=== PATIENT | male | born 1950 | race Caucasian/White ===

== ENCOUNTER 2016-06-09 05:33 | Emergency (ER) | payer SELFPAY ==
[~2016-06-09] VITALS: Ht 177.8 cm; Wt 88.5 kg
[2016-06-09 05:33] VITALS: BP 164/100; PULSE 98; RESP 18; TEMP 98.2; O2SAT 98
[~2016-06-09 05:33] MED LIST: ENALAPRIL; METFORMIN; SERT100T PO
--- NOTE | 2016-06-09 05:33 | NUR ---
Patient to ER bed 7 to gown for evaluation. Side rails up.
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
--- NOTE | 2016-06-09 05:53 | NUR ---
ER at bedside examining patient.
[2016-06-09] MEDS ORDERED: KETOROLAC TROMETHAMINE 60 MG/2 ML VIAL IM ONE (06:00)
--- NOTE | 2016-06-09 06:07 | NUR ---
Medication given as per orders , tolerated well.
[2016-06-09] MEDS ORDERED: MORPHINE 4 MG/ML INJ. SYRINGE IM ONE (06:45)
[2016-06-09 07:18] VITALS: BP 155/89; PULSE 86; RESP 20; TEMP 98.1; O2SAT 100
--- NOTE | 2016-06-09 07:18 | NUR ---
Patient given written and verbal discharge instructions and verbalizes understanding. ER MD discussed with patient the results and treatment provided. Patient in stable condition. ID arm band removed. Rx of Bad Axe and Motrin given. Patient educated on pain management and to follow up with PMD. Pain Scale 0/10. Opportunity for questions provided and answered.
== END 2016-06-09 07:18 | disposition home or self-care (01) ==
LOC: SED 05:33
DX: S80.01XA Contusion of right knee, initial encounter (principal); E11.9 Type 2 diabetes mellitus without complications; I10 Essential (primary) hypertension; V09.9XXA Pedestrian injured in unspecified transport accident, initial encounter; Y93.89 Activity, other specified; Y92.481 Parking lot as the place of occurrence of the external cause; Y99.8 Other external cause status
CPT/HCPCS: 73564; 96372; 99284; J1885; J2270